=== PATIENT | female | born 1980 | race Caucasian/White ===

== ENCOUNTER 2016-11-11 10:19 | Emergency (ER) | payer OTHER ==
[~2016-11-11] VITALS: Ht 160 cm; Wt 47.0 kg
[~2016-11-11 10:19] MED LIST: METH5SOL3 PO; MUPI2%T TOP; XANA1TAB6 PO
[2016-11-11 10:30] VITALS: BP 113/64; PULSE 70; RESP 16; TEMP 98.2; O2SAT 100
--- NOTE | 2016-11-11 11:08 | PD ---
HPI Chief Complaint: Exposure to Blood/Body Fluids Time Seen by Provider: 10:43 Travel History International Travel<30 days: No Contact w/Intl Traveler<30days: No Traveled to known affect area: No History of Present Illness HPI This 36-year-old female is says that on November 03 She was at the [facility]. She was wearing flip-flops. She had a sharp pain in her left heel and saw a hyperdynamic needle in her foot. She pulled it out and there was bleeding. She doesn't know if the hyperdynamic needle had been used or not. [facility] Past Medical History Diminished Hearing: No Hepatitis: Yes (C) Tetanus Vaccination: Unknown Influenza Vaccination: No ?: : 4 Para: 2 : 1 Past Surgical History Section: Yes Other Surgery: Yes (bilateral breast augmentation) Social History Alcohol Use: No Tobacco Use: No Substance Use: No Allergies-Medications (Allergen,Severity, Reaction): Coded Allergies: Penicillin (Verified Allergy, Intermediate, Hives, 11/11/16) Reported Meds & Prescriptions Reported Meds & Active Scripts Active No Active Prescriptions or Reported Medications Review of Systems General / Constitutional: No: Fever, Chills Genitourinary: No: Urgency Musculoskeletal: Positive: Pain, No: Myalgias Skin: No Rash Physical Exam Narrative GENERAL: Well-developed female SKIN: Focused skin assessment warm/dry. HEAD: Atraumatic. Normocephalic. EYES: Pupils equal and round. No scleral icterus. No injection or drainage. ENT: No nasal bleeding or discharge. Mucous membranes pink and moist. NECK: Trachea midline. No JVD. MUSCULOSKELETAL: No obvious deformities. No clubbing. No cyanosis. No edema. There is a puncture wound on the plantar surface of the left heel which is slightly tender. There is no erythema or drainage. Foreign body is not seen NEUROLOGICAL: Awake and alert. No obvious cranial nerve deficits. Motor grossly within normal limits. Normal speech. PSYCHIATRIC: Appropriate mood and affect; insight and judgment normal. Data Data Last Documented VS Vital Signs Date Time Temp Pulse Resp B/P Pulse Ox O2 Delivery O2 Flow Rate FiO2 11/11/16 10:33 11/11/16 10:30 98.2 70 16 100 Room Air Orders Foot, One View (11/11/16 10:53) Hiv Antibody Screen (11/11/16 11:18) Hepatitis B Surface Ab (11/11/16 11:18) Hepatitis B Surface Ag (11/11/16 11:18) MDM Medical Decision Making Medical Screen Exam Complete: Yes Emergency Medical Condition: Yes Medical Record Reviewed: Yes Differential Diagnosis Differential includes retained foreign body, hep B exposure, HIV exposure Narrative Course X-ray for foreign body is negative. Limited views with abdominal shielding were done in view of the . Diagnosis Primary Impression: Puncture wound of heel Additional Impression: possible infectious disease exposure Additional Instructions: Follow-up with health department for HIV and hepatitis B results Scripts No Active Prescriptions or Reported Meds Disposition: 01 DISCHARGE HOME Condition: Stable Zan Orta MD Nov 11, 2016 11:08
--- NOTE | 2016-11-11 11:23 | RADRPT ---
EXAM DATE/TIME: 11/11/2016 11:11 [facility] COMPARISON: No previous studies available for comparison. INDICATIONS : Left foot pain after stepping on needle 1 week ago. MEDICAL HISTORY : None. SURGICAL HISTORY : None. ENCOUNTER: Initial ACUITY: 1 week PAIN SCORE: 10/10 LOCATION: Left plantar foot FINDINGS: Single lateral view of the left foot reveals grossly normal bony alignment. No definite evidence of fracture or dislocation. No radiopaque foreign bodies are demonstrated. CONCLUSION: Unremarkable limited study of the left foot. Sourav Montano MD on November 11, 2016 at 11:20 Board Certified Radiologist. This report was verified electronically.
[2016-11-11] MEDS ORDERED: TETANUS/DIPHTHERIA TOXOID ADULT 0.5 ML VIAL IM ONE (11:45)
[2016-11-11 12:22] VITALS: BP 99/59
[2016-11-13 11:49] LABS: HEPATITIS B SURFACE ANTIBODY 99.4 mIU/mL
== END 2016-11-11 12:23 | disposition home or self-care (01) ==
LOC: PHED 10:19
DX: S91.332A Puncture wound without foreign body, left foot, initial encounter (principal); W46.0XXA Contact with hypodermic needle, initial encounter; Y93.9 Activity, unspecified; Y92.512 Supermarket, store or market as the place of occurrence of the external cause; Z11.59 Encounter for screening for other viral diseases
CPT/HCPCS: 86317; 86703; 87340; 99284